=== PATIENT | male | born 1995 | race African-American/Black ===

== ENCOUNTER 2019-05-22 11:05 | Emergency (ER) | payer SELFPAY ==
[~2019-05-22] VITALS: Ht 172 cm; Wt 61.3 kg
[2019-05-22] MEDS ORDERED: ACETAMINOPHEN 325 MG TABLET PO ONE (11:15)
[2019-05-22] MEDS ORDERED: IBUPROFEN 800 MG (MOTRIN) TAB PO ONE (11:15)
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
[2019-05-22] MEDS ORDERED: IBUP-1780 PO (12:01)
[2019-05-22 12:10] VITALS: BP 145/92
== END 2019-05-22 12:15 | disposition home or self-care (01) ==
LOC: ER FS 11:06
DX: S60.221A Contusion of right hand, initial encounter (principal); S20.212A Contusion of left front wall of thorax, initial encounter; V58.5XXA Driver of pick-up truck or van injured in noncollision transport accident in traffic accident, initial encounter; Y92.411 Interstate highway as the place of occurrence of the external cause
CPT/HCPCS: 71046; 73130